=== PATIENT | male | born 1975 | race African-American/Black ===

== ENCOUNTER 2017-10-02 08:08 | Emergency (ER) | payer SELFPAY ==
[2017-10-02 08:13] VITALS: BP 122/95; PULSE 73; TEMP 98; BMI 36.2
--- NOTE | 2017-10-02 08:37 | PDOC ---
History of Present Illness - General Chief Complaint: Penile Drainage Stated Complaint: IRRIATION Time Seen by Provider: 10/02/17 08:21 - History of Present Illness Initial Comments: 10/02/17 08:37 Chief complaint: Urethral irritation and discharge History of present illness present for 2 weeks, began one week after new sexual encounter with a female. No subsequent contact with this particular female, but has had sexual intercourse since his symptoms begun with other women, but always used a condom. No fever/chills, rash, or testicular pain or swelling Review of systems: Complains of left ear irritation with movement of the external ear, subsequent to vigorous cleaning with a Q-tip swab. No URI symptoms or sore throat. Otherwise review of systems negative Past medical history: One prior episode of STD treated with antibiotics over one year ago. Otherwise no significant medical or surgical problems Social/family history reviewed and noncontributory Physical exam: Alert oriented well-developed well-nourished no acute distress cooperative Afebrile, vital signs normal Left TM appears healthy. There is mild irritation of the left canal. Otherwise ENT clear Abdomen soft nontender without mass or organomegaly. exam shows very slight watery urethral discharge, no visible irritation or lesions. No rash. Testes descended bilaterally without mass or tenderness. No swelling. No hernias. Impression: Probable chlamydia. Otitis externa Plan: Urethral cultures and empiric treatment. Eardrops and avoid further irritation, instructed to refrain from cleaning the ears with Q-tips or any other instruments. Follow-up with urologist and ENT as needed. Past History - Past Medical History Allergies/Adverse Reactions: Allergies Allergy/AdvReac Type Severity Reaction Status Date / Time No Known Allergies Allergy Verified 10/02/17 08:09 Home Medications: Ambulatory Orders Acetic Acid 2% Otic Soln [Vosol 2% Ear Drops -] 3 drop QID #1 bottle Doxycycline Hyclate [Vibratab -] 100 mg PO BID #14 tablet 10/02/17 COPD: No - Suicide/Smoking/Psychosocial Hx Smoking History: Never smoked Hx Alcohol Use: No Drug/Substance Use Hx: No Substance Use Type: Alcohol *Physical Exam - Vital Signs Last Vital Signs Temp Pulse Resp BP Pulse Ox 98.0 F 73 16 122/95 100 10/02/17 08:09 10/02/17 08:09 10/02/17 08:09 10/02/17 08:09 10/02/17 08:09 *DC/Admit/Observation/Transfer Diagnosis at time of Disposition: Urethritis Otitis externa of left ear Qualifiers: Otitis externa type: unspecified type Chronicity: acute Qualified Code(s): H60.502 - Unspecified acute noninfective otitis externa, left ear - Discharge Dispostion Disposition: HOME Condition at time of disposition: Improved Admit: No - Referrals Referrals: Nicolas Barrett MD [Staff Physician] - Bhupinder Padgett MD [Staff Physician] - - Patient Instructions Printed Discharge Instructions: DI for Urethritis, DI for Otitis Externa Additional Instructions: Inform all sexual contacts of possible infection and the need for examination and treatment. Refrain from sexual intercourse for at least 1 week after treatment If symptoms persist, see urologist for further evaluation and treatment If ear pain persists or worsens, see ENT specialist for further treatment - Post Discharge Activity
[2017-10-02 08:51] LABS: PH,URINE 5.5 (4.5-8); URINE APPEARANCE Clear; URINE BILIRUBIN Negative (NEGATIVE); URINE BLOOD Trace-intact (NEGATIVE); URINE COLOR YELLOW; URINE GLUCOSE (UA) Negative (NEGATIVE); URINE KETONE Negative (NEGATIVE); URINE LEUK ESTERASE Negative (NEGATIVE); URINE NITRITE Negative (NEGATIVE); URINE PROTEIN Negative (NEGATIVE); URINE UROBILINOGEN 0.2 (0.2-1.0); URINE WBC 0-3 (0-2)
[2017-10-02 08:52] LABS: URINE BACTERIA FEW /hpf (NEGATIVE)
== END 2017-10-02 08:48 | disposition home or self-care (01) ==
LOC: FER 08:08
CPT/HCPCS: 36415; 81003; 81015; 87491; 87591; 99281-25

== ENCOUNTER 2017-10-17 01:16 | Emergency (ER) | payer SELFPAY ==
--- NOTE | 2017-10-17 01:20 | PDOC ---
History of Present Illness - General Chief Complaint: Rash Stated Complaint: RASH Time Seen by Provider: 10/17/17 01:19 - History of Present Illness Initial Comments: This 42-year-old man seen here approximately 2 weeks ago with dysuria but no penile discharge presents with persistent dysuria and one-day history of clear discharge. He has a history of unprotected sexual intercourse with a female approximately one month ago; this was a new contact and he is unsure of her STD status. He has not had sexual intercourse since being seen and treated here When he was seen here 2 weeks ago, chlamydial /GC urethral swab sent. He was given Rocephin 250 mg IM and discharged with prescription for doxycycline twice a day for 10 days. Patient could not afford the doxycycline and returned here a few days later. GC/chlamydial swab was negative and patient was told to follow-up with his doctor. He continued to have burning with urination and noted clear discharge from his penis today. No new symptoms. Denies fever/ chills or other constitutional symptoms. He states that he has had STDs in distant past. He has not had any other serious medical problems Past History - Past Medical History Allergies/Adverse Reactions: Allergies Allergy/AdvReac Type Severity Reaction Status Date / Time No Known Allergies Allergy Verified 10/02/17 08:09 Home Medications: Ambulatory Orders Acetic Acid 2% Otic Soln [Vosol 2% Ear Drops -] 3 drop QID #1 bottle Doxycycline Hyclate [Vibratab -] 100 mg PO BID #14 tablet 10/02/17 COPD: No - Suicide/Smoking/Psychosocial Hx Smoking History: Never smoked Hx Alcohol Use: No Drug/Substance Use Hx: No Substance Use Type: Alcohol Review of Systems - Review of Systems Able to Perform ROS?: Yes Comments:: 12 point review of systems is negative except for what is noted in the history of present illness *Physical Exam - Physical Exam Comments: GENERAL: Adult male in no acute distress HEAD: Normal with no signs of trauma. EYES: PERRLA, EOMI, sclera anicteric, conjunctiva clear. ENT: Ears normal, nares patent, oropharynx clear without exudates. Dry mucous membranes. NECK: Normal range of motion, supple without lymphadenopathy, JVD, or masses. LUNGS: Breath sounds equal, clear to auscultation bilaterally. No wheezes, and no crackles. HEART:Regular rate and rhythm, normal S1 and S2 without murmur, rub or gallop. ABDOMEN:.normal bowel sounds No guarding,tenderness or rebound.No masses No distention. EXTREMITIES: Normal range of motion, no edema. No clubbing or cyanosis. No erythema, or tenderness. NEUROLOGICAL: Cranial nerves II through XII grossly intact. Normal speech. No focal neurological deficits. MUSCULOSKELETAL: Back non-tender to palpation, no CVA tenderness SKIN: Warm, Dry, normal turgor, no rashes or lesions noted. Medical Decision Making - Medical Decision Making GC/chlamydial amplification swab sent of urethra. Patient received Rocephin 250 mg IM. Patient received 1 g of azithromycin by mouth Patient states that he has clinic in the [place] that he can follow up with if he has persistent symptoms. He has been told to return to the ER if he has severe symptoms or develops fever/vomiting *DC/Admit/Observation/Transfer Diagnosis at time of Disposition: Urethritis - Discharge Dispostion Disposition: HOME Condition at time of disposition: Stable - Referrals - Patient Instructions Printed Discharge Instructions: Urethritis Additional Instructions: Drink plenty of water Return if you have worsening pain/discharge or develop fever/vomiting No sexual intercourse for at least one week Follow-up with clinic in the [place] as discussed - Post Discharge Activity
[2017-10-17 01:24] VITALS: BP 132/81; PULSE 69; TEMP 97.9; BMI 37.6
[2017-10-17] MEDS ORDERED: AZITHROMYCIN 500 MG TABLET PO ONE (02:07)
[2017-10-17] MEDS ORDERED: AZITHROMYCIN 500 MG TABLET ONE (02:12)
[2017-10-17] MEDS ORDERED: LIDOCAINE HCL 2% (20ML MULTI-DOSE VIAL) NR ONE (02:12)
== END 2017-10-17 02:27 | disposition home or self-care (01) ==
LOC: FER 01:16
DX: N34.2 Other urethritis (principal)
CPT/HCPCS: 36415; 87491; 87591; 99282-25